=== PATIENT | female | born 1995 | race Caucasian/White ===

== ENCOUNTER 2024-07-04 12:16 | Emergency (ER) | payer BC ==
[2024-07-04] MEDS: Lactated Ringers 1,000 ML IV ONE (13:29)
[2024-07-04 13:38] LABS: BASOPHILS PERCENT AUTO 0.2 % (0.0-1.0); EOSINOPHILS PERCENT AUTO 0.2 % (0.0-6.0); HEMATOCRIT 40.1 % (37.0-47.0); HEMOGLOBIN 13.3 gm/dl (12.0-16.0); IMMATURE GRAN ABSOLUTE AUTO 0.04 K/mm3 (0.00-0.05); IMMATURE GRAN PERCENT AUTO 0.3 % (0.0-0.4); LYMPHOCYTES ABSOLUTE AUTO 1.7 K/mm3 (1.0-4.8); LYMPHOCYTES PERCENT AUTO 11.1 % (24.0-44.0); MEAN CORPUSCULAR HGB CONC 33.2 g/dl (32.0-36.0); MEAN CORPUSCULAR VOLUME 87.4 fl (83.0-99.0); MEAN PLATELET VOLUME 9.4 fl (9.4-12.3); MONOCYTES PERCENT AUTO 6.7 % (0.0-8.0); NEUTROPHILS ABSOLUTE AUTO 12.3 K/mm3 (1.8-7.7); NEUTROPHILS PERCENT AUTO 81.5 % (41.0-71.0); PLATELET COUNT,PLT 302 K/mm3 (150-400); RED BLOOD CELL COUNT 4.59 M/mm3 (4.10-5.30); WHITE BLOOD CELL COUNT,WBC 15.01 K/mm3 (3.9-11.3)
[2024-07-04 14:01] LABS: A/G RATIO 0.6 (1-2); ALBUMIN 2.9 g/dl (3.4-5.0); ANION GAP 12.8 (5-15); BILIRUBIN TOTAL 0.6 mg/dL (0.2-1.0); CALCIUM 9.1 mg/dL (8.5-10.1); CREATININE 0.8 mg/dL (0.55-1.02); EST CRCL DRUG DOSING (CG) 88.15 mL/min; MAGNESIUM 1.9 mg/dL (1.8-2.4); POTASSIUM,K 3.8 mEq/L (3.5-5.1); PROTEIN TOTAL,TP 8.2 g/dl (6.4-8.2)
[2024-07-04] MEDS: Ketorolac 30 MG/ML SDV IVPUSH ONE (15:11)
[2024-07-04] MEDS: Sodium Chloride 0.9% 10 ML Syringe FLUSH PRN (15:15)
== END 2024-07-04 17:35 | disposition home or self-care (01) ==
LOC: JD.ED 12:16
DX: R19.7 Diarrhea, unspecified (principal); F17.210 Nicotine dependence, cigarettes, uncomplicated; Z79.899 Other long term (current) drug therapy; Z88.0 Allergy status to penicillin; Z88.1 Allergy status to other antibiotic agents
CPT/HCPCS: 36415; 80053; 83735; 85025; 96361; 96374; 99284; J1885; J7120; 99282

== ENCOUNTER 2024-07-07 09:23 | Emergency (ER) | payer BC ==
[2024-07-07] MEDS ORDERED: Naloxone 0.4 MG/ML SDV IVPUSH PRN (10:16)
[2024-07-07 10:17] LABS: APPEARANCE,URINE SLT CLOUDY (Clear); BILIRUBIN,URINE 1+ (Negative); COLOR,URINE DARK YELLOW (Yellow); GLUCOSE,URINE NEGATIVE (Negative); KETONES,URINE 3+ (Negative); LEUKOCYTE ESTERASE,URINE NEGATIVE (Negative); NITRITE,URINE NEGATIVE (Negative); OCCULT BLOOD,URINE NEGATIVE (Negative); PH,URINE 6.5 (5.0-8.0); PROTEIN,URINE 1+ (Negative)
[2024-07-07 10:23] LABS: BARBITURATE SCREEN,URINE NEGATIVE (CUTOFF=200); BENZODIAZEPINES SCREEN,URINE NEGATIVE (CUTOFF=150); BUPRENORPHINE SCREEN,URINE NEGATIVE (CUTOFF=10); METHADONE SCREEN, URINE NEGATIVE (CUTOFF=200); METHAMPHETAMINES SCREEN, URINE NEGATIVE (CUTOFF=500); OXYCODONE SCREEN,URINE NEGATIVE (CUT0FF=100); THC SCREEN,URINE 20 NG/ML NEGATIVE (CUTOFF=50)
[2024-07-07] MEDS: Ondansetron 4 MG/2 ML SDV IVPUSH ONE ×2 (10:29)
[2024-07-07] MEDS: Ketorolac 15 MG/ML SDV IVPUSH ONE (10:29)
[2024-07-07] MEDS: Sodium Chloride 0.9% 2,000 ML IV ONE (10:29)
[2024-07-07] MEDS: HYDROmorphone 0.5 MG/0.5 ML Syringe IVPUSH ONE (10:29)
[2024-07-07] MEDS: Acetaminophen 325 MG Tab PO ONE (10:30)
[2024-07-07 10:34] LABS: AMPHETAMINES SCREEN, URINE NEGATIVE (CUTOFF=500)
[2024-07-07 10:58] LABS: BASOPHILS PERCENT AUTO 0.2 % (0.0-1.0); HEMATOCRIT 39.6 % (37.0-47.0); HEMOGLOBIN 12.9 gm/dl (12.0-16.0); IMMATURE GRAN ABSOLUTE AUTO 0.06 K/mm3 (0.00-0.05); IMMATURE GRAN PERCENT AUTO 0.4 % (0.0-0.4); LYMPHOCYTES ABSOLUTE AUTO 0.7 K/mm3 (1.0-4.8); LYMPHOCYTES PERCENT AUTO 4.3 % (24.0-44.0); MEAN CORPUSCULAR HEMOGLOBIN 28.7 pg (28.0-32.0); MEAN CORPUSCULAR HGB CONC 32.6 g/dl (32.0-36.0); MEAN CORPUSCULAR VOLUME 88.2 fl (83.0-99.0); MEAN PLATELET VOLUME 9.2 fl (9.4-12.3); MONOCYTES ABSOLUTE AUTO 0.3 K/mm3 (0.0-0.8); MONOCYTES PERCENT AUTO 1.7 % (0.0-8.0); NEUTROPHILS ABSOLUTE AUTO 15.3 K/mm3 (1.8-7.7); NEUTROPHILS PERCENT AUTO 93.4 % (41.0-71.0); RED BLOOD CELL COUNT 4.49 M/mm3 (4.10-5.30); WHITE BLOOD CELL COUNT,WBC 16.33 K/mm3 (3.9-11.3)
[2024-07-07 11:12] LABS: PLATELET COUNT,PLT 443 K/mm3 (150-400)
[2024-07-07 11:14] LABS: BACTERIA,URINE MODERATE /hpf (FEW); MUCUS,URINE MANY /hpf (FEW); RBC,URINE 0-5 /hpf (0-5)
[2024-07-07 11:17] LABS: A/G RATIO 0.6 (1-2); ALBUMIN 2.8 g/dl (3.4-5.0); ANION GAP 10.7 (5-15); BILIRUBIN TOTAL 0.6 mg/dL (0.2-1.0); BUN/CREATININE RATIO 6.3 (14-18); CREATININE 0.8 mg/dL (0.55-1.02); EST CRCL DRUG DOSING (CG) 88.15 mL/min; MAGNESIUM 1.7 mg/dL (1.8-2.4); POTASSIUM,K 3.7 mEq/L (3.5-5.1); PROTEIN TOTAL,TP 7.8 g/dl (6.4-8.2)
== END 2024-07-07 13:10 | disposition home or self-care (01) ==
LOC: JD.ED 09:23
DX: E86.0 Dehydration (principal); B34.9 Viral infection, unspecified; M54.2 Cervicalgia; Z88.0 Allergy status to penicillin; Z88.1 Allergy status to other antibiotic agents
CPT/HCPCS: 36415; 80053; 80306; 81001; 81025; 82550; 83690; 83735; 85025; 87428; 96361; 96374; 96375; 99284; A9270; J1885; J2405; J7030

== ENCOUNTER 2024-07-07 22:23 | Emergency (ER) | payer BC ==
[2024-07-07] MEDS ORDERED: Sodium Chloride 0.9% 10 ML Syringe FLUSH PRN (22:55)
[2024-07-07] MEDS ORDERED: cefTRIAXone 1 GM Vial IVPUSH ONE (23:09)
[2024-07-07] MEDS ORDERED: VANCOmycin 1.75 GM/350 ML 1.75 GM in Premix Bag 1 BAG IV ONE (23:11)
[2024-07-07 23:12] LABS: BASOPHILS PERCENT AUTO 0.1 % (0.0-1.0); HEMATOCRIT 36.7 % (37.0-47.0); HEMOGLOBIN 11.7 gm/dl (12.0-16.0); IMMATURE GRAN PERCENT AUTO 0.5 % (0.0-0.4); LYMPHOCYTES ABSOLUTE AUTO 0.9 K/mm3 (1.0-4.8); LYMPHOCYTES PERCENT AUTO 4.9 % (24.0-44.0); MEAN CORPUSCULAR HEMOGLOBIN 28.5 pg (28.0-32.0); MEAN CORPUSCULAR HGB CONC 31.9 g/dl (32.0-36.0); MEAN CORPUSCULAR VOLUME 89.3 fl (83.0-99.0); MEAN PLATELET VOLUME 8.9 fl (9.4-12.3); MONOCYTES ABSOLUTE AUTO 0.4 K/mm3 (0.0-0.8); MONOCYTES PERCENT AUTO 2.1 % (0.0-8.0); NEUTROPHILS ABSOLUTE AUTO 17.5 K/mm3 (1.8-7.7); NEUTROPHILS PERCENT AUTO 92.4 % (41.0-71.0); PLATELET COUNT,PLT 437 K/mm3 (150-400); RED BLOOD CELL COUNT 4.11 M/mm3 (4.10-5.30); WHITE BLOOD CELL COUNT,WBC 18.93 K/mm3 (3.9-11.3)
[2024-07-07] MEDS ORDERED: VANCOmycin 1.75 GM in Sodium Chloride 0.9% 500 ML IV ONE (23:30)
[2024-07-07] MEDS ORDERED: Meropenem 2 GM in Sodium Chloride 0.9% 100 ML IV SCH (23:30)
[2024-07-07 23:36] LABS: A/G RATIO 0.5 (1-2); ALANINE AMINOTRANSFERASE,ALT 21 U/L (14-59); ALBUMIN 2.5 g/dl (3.4-5.0); ALKALINE PHOSPHATASE 83 U/L (46-116); ANION GAP 11.9 (5-15); ASPARTATE AMNIOTRANSFERASE,AST 12 U/L (15-37); BILIRUBIN TOTAL 0.4 mg/dL (0.2-1.0); BLOOD UREA NITROGEN,BUN 7 mg/dL (7-18); BUN/CREATININE RATIO 8.8 (14-18); CALCIUM 8.3 mg/dL (8.5-10.1); CARBON DIOXIDE,CO2 26 mEq/L (21-32); CHLORIDE,CL 105 mEq/L (98-107); CREATININE 0.8 mg/dL (0.55-1.02); ESTIMATED GFR 104 mL/min (>60); GLUCOSE RANDOM 124 mg/dL (70-99); MAGNESIUM 1.7 mg/dL (1.8-2.4); POTASSIUM,K 3.9 mEq/L (3.5-5.1); PROTEIN TOTAL,TP 7.3 g/dl (6.4-8.2); SODIUM,NA 139 mEq/L (136-145)
[2024-07-07] MEDS: Dexamethasone 4 MG/ML 5 ML MDV IV SCH (23:38)
[2024-07-07 23:39] LABS: LACTIC ACID 0.8 mmol/L (0.4-2.0)
[2024-07-08] MEDS: Meropenem 2 GM in Sodium Chloride 0.9% 100 ML IV SCH (00:02)
[2024-07-08] MEDS: VANCOmycin 1.75 GM/350 ML 1.75 GM in Premix Bag 1 BAG IV ONE (00:05)
[2024-07-08 00:20] LABS: SLIDE REVIEW ABNORMAL SMEAR
[2024-07-08] MEDS: HYDROmorphone 0.5 MG/0.5 ML Syringe IVPUSH PRN (01:06)
[2024-07-08] MEDS ORDERED: ACYCLOVIR IV SCH ×2 (01:07→01:09)
[2024-07-08] MEDS ORDERED: SODIUM CHLORIDE 0.9% IV SCH ×2 (01:07→01:09)
[2024-07-08 01:13] LABS: PROTEIN,CSF 201.8 mg/dl (15-45)
[2024-07-08] MEDS: SODIUM CHLORIDE 0.9% IV SCH (01:59)
[2024-07-08] MEDS: ACYCLOVIR IV SCH (01:59)
[2024-07-08] MEDS: Sodium Chloride 0.9% 1,000 ML IV ONE (02:31)
[2024-07-08 02:36] LABS: COLOR,CSF COLORLESS; TUBE NUMBER,CSF 1; TUBE VOLUME,CSF 3 ml
[2024-07-08 02:37] LABS: APPEARANCE CSF CLOUDY (CLEAR); SUPERNATANT APPEAR,CSF NO XANTHOCHROMIA
[2024-07-08 02:38] LABS: POLYMORPHONUCLEAR, CSF 58 % (2-4); RBC,CSF 0 cells/uL (0-0)
[2024-07-08 02:41] LABS: WBC,CSF 9660 cells/uL (0-5)
== END 2024-07-08 03:25 ==
LOC: EDBD → EDUNIT# → JD.ED 22:23
DX: G03.9 Meningitis, unspecified (principal); Z88.0 Allergy status to penicillin; Z88.1 Allergy status to other antibiotic agents; Z79.899 Other long term (current) drug therapy
CPT/HCPCS: 36415; 62270; 70450; 80053; 82945; 83605; 83735; 84157; 85025; 87040; 87070; 87086; 87205; 87483; 89050; 96365; 96366; 96367; 96375; 99285; J0133; J1100; J2185; J3372; J7030